=== PATIENT | male | born 1970 | race Caucasian/White ===

== ENCOUNTER 2019-04-25 05:42 | Day surgery (SDC) | payer MEDICAID ==
[~2019-04-25] VITALS: Ht 180.3 cm; Wt 124.0 kg
[2019-04-25 06:25] VITALS: BP 120/77
[2019-04-25 06:47] LABS: INTERNATIONAL NORMALIZED RATIO 3.95 (0.93-1.1); PROTHROMBIN TIME 39.3 Seconds (9.6-11.5)
[2019-04-25 06:49] LABS: ANION GAP 4 mmol/L (5-15); CALCIUM 9.6 mg/dL (8.5-10.1); CHLORIDE 99 mmol/L (98-107); CREATININE 8.02 mg/dL (0.7-1.3)
[2019-04-25] MEDS ORDERED: FERR324T18 PO (06:50)
[2019-04-25] MEDS ORDERED: FURO20TA3 PO (06:50)
[2019-04-25] MEDS ORDERED: CINA30TA2 PO (06:50)
[2019-04-25] MEDS ORDERED: CHOL2000 PO (06:50)
[2019-04-25] MEDS ORDERED: ALLO100T30 PO (06:50)
[2019-04-25] MEDS ORDERED: ASPI-496 PO (06:50)
[2019-04-25] MEDS ORDERED: METO25TA91 PO (06:50)
[2019-04-25] MEDS ORDERED: SEVE800T8 PO (06:50)
[2019-04-25] MEDS ORDERED: WARF7.5T46 PO (06:50)
[2019-04-25] MEDS ORDERED: PROPOFOL 10 MG/ML, 20ML ONE (07:32)
== END 2019-04-25 08:51 | disposition home or self-care (01) ==
LOC: CACL 05:42 → OUT 08:51
PROVIDERS: ATTEND Internal Medicine Cardiovascular Disease
DX: I48.0 Paroxysmal atrial fibrillation (principal); I13.2 Hypertensive heart and chronic kidney disease with heart failure and with stage 5 chronic kidney disease, or end stage renal disease; N18.6 End stage renal disease; I50.9 Heart failure, unspecified; K21.9 Gastro-esophageal reflux disease without esophagitis; M10.9 Gout, unspecified; Z79.01 Long term (current) use of anticoagulants; Z79.899 Other long term (current) drug therapy; Z99.2 Dependence on renal dialysis
CPT/HCPCS: 00410; 36415; 80048; 85610; 92960; 93005; J2704

== ENCOUNTER 2021-03-01 11:37 | Outpatient (CLI) | payer MEDICARE ==
[~2021-03-01 11:37] MED LIST: ALLO100T30 PO; ASPI-496 PO; CHOL2000 PO; CINA30TA2 PO; FERR324T18 PO; FURO20TA3 PO; METO25TA91 PO; SEVE800T8 PO; WARF7.5T46 PO
[2021-03-04] MEDS ORDERED: METO25TA91 PO (07:07)
[2021-03-04] MEDS ORDERED: APIX5TAB PO (07:07)
[2021-03-04] MEDS ORDERED: CHOL10003 PO (07:07)
[2021-03-04] MEDS ORDERED: AMIO200T42 PO (07:07)
[2021-03-04] MEDS ORDERED: ALBU90AE2 INH (07:07)
[2021-03-04] MEDS ORDERED: WARF7.5T46 PO (07:09)
[2021-03-04] MEDS ORDERED: LOSA25TA25 PO ×2 (07:18)
[2021-03-04] MEDS ORDERED: DOCU-131 PO (07:23)
== END 2021-03-01 23:59 | disposition home or self-care (01) ==
LOC: COVVAC 11:37
PROVIDERS: ATTEND Internal Medicine Cardiovascular Disease
DX: Z20.822 Contact with and (suspected) exposure to COVID-19 (principal); I48.0 Paroxysmal atrial fibrillation
CPT/HCPCS: U0003; U0005

== ENCOUNTER 2021-03-04 06:04 | Observation (INO) | payer MEDICARE ==
[~2021-03-04] VITALS: Ht 180.3 cm; Wt 104.5 kg
[2021-03-04 18:48] VITALS: BP 144/90
== END 2021-03-05 23:59 | disposition still patient (30) ==
LOC: CACL 06:04 → ORIP 10:15 → 5SO 12:09
PROVIDERS: ADMIT Internal Medicine Cardiovascular Disease; ATTEND Internal Medicine Cardiovascular Disease
DX: I48.3 Typical atrial flutter (principal); I48.4 Atypical atrial flutter; I48.91 Unspecified atrial fibrillation; Z79.899 Other long term (current) drug therapy